=== PATIENT | male | born 1975 | race African-American/Black ===

== ENCOUNTER 2020-04-10 15:15 | Emergency (ER) | payer MEDICARE, OTHER ==
[~2020-04-10] VITALS: Ht 160 cm; Wt 61.8 kg
[2020-04-10] MEDS ORDERED: IBUPROFEN 600 MG TAB PO STA (16:13)
[2020-04-10] MEDS ORDERED: IBUPROFEN 600 MG TAB ONE (16:31)
[2020-04-10] MEDS ORDERED: IBUPROFEN400 MG PO ×2 (16:51→16:55)
[2020-04-10] MEDS ORDERED: ULTRAM 50MG50 MG PO (16:53)
[2020-04-10 17:12] VITALS: BP 108/77
== END 2020-04-10 17:11 | disposition home or self-care (01) ==
LOC: FSED 15:24
DX: S13.4XXA Sprain of ligaments of cervical spine, initial encounter (principal); M62.830 Muscle spasm of back; V43.62XA Car passenger injured in collision with other type car in traffic accident, initial encounter; Y92.488 Other paved roadways as the place of occurrence of the external cause; G89.29 Other chronic pain
CPT/HCPCS: 99283